=== PATIENT | male | born 1995 | race Two or more races ===

== ENCOUNTER 2017-11-07 09:15 | Emergency (ER) | payer OTHER ==
[2017-11-07 09:25] VITALS: BP 115/78
--- NOTE | 2017-11-07 09:54 | EDPHY ---
H & P Time Seen by Provider: 11/07/17 09:20 HPI/ROS: This patient sustained a head injury at work yesterday. 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 While he was bent down a 10 lb rock fell approximately 4 ft and struck the occiput of his head the yesterday at work. He was dazed and had fleeting blurred vision from the incident and then developed a headache 6/10 intensity in the frontal area thereafter. He also describes feeling slightly cloudy with his thinking since yesterday at 4:00 p.m. When this occurred and having intermittent mild dizziness. Yesterday he also had tinnitus which has since resolved. His supervisor [employer] instructed to come in for evaluation for his head injury. He came in by private vehicle. He has not taken any medication this morning for his headache which is not diminish to 3/ 10 intensity frontal location. He describes the nature of the headache as achy. ROS: Constitutional: No complaints new line HEENT: No facial injuries. Neuro: No vision changes. He describes brief paresthesias to the forehead region which have since resolved. No other numbness or tingling. No focal weakness. No angeles confusion. No retrograde amnesia. Musculoskeletal: No midline neck or back pain. No extremity complaints 7 point ROS is otherwise negative besides what is mentioned in HPI and ROS Smoking Status: Current some day smoker Physical Exam: Physical exam: Vital signs are normal General: Patient is in no acute distress. HEENT: Is no external evidence of trauma on exam. Nose atraumatic. Ears: Clear bilaterally with no hemotympanum. Oropharynx: No dental trauma or malocclusion. No intraoral lacerations. Eyes: Pupils are equal and reactive to light. Extraocular motions are intact. Optic fundi: Clear with no papilledema or hemorrhage. Neck: Trachea is midline with no stridor. The patient has no midline neck tenderness and retains a full range of motion without increase in pain. Lungs: Clear to auscultation bilaterally Cardiac: Regular rate and rhythm no murmur gallop or rub. Chest: Nontender. Abdomen: Soft nontender no organomegaly Back: Nontender Extremities: Atraumatic Neuro: GCS of 15. Cranial nerves II through XII intact. 2 out of 3 five- minute memory is intact. Cerebellar exam is normal as judged by symmetric rapid hand movements bilaterally. No pronator drift. No sensory or motor deficits are appreciated. Initial differential diagnosis: Minor head injury, concussion without LOC, doubt cerebral contusion more significant head injury based on history and exam Constitutional: Initial Vital Signs Temperature (C) 36.7 C 11/07/17 09:20 Heart Rate 69 11/07/17 09:20 Respiratory Rate 16 11/07/17 09:20 Blood Pressure 115/78 11/07/17 09:20 O2 Sat (%) 97 11/07/17 09:20 O2 Delivery Mode Room Air Allergies/Adverse Reactions: No Known Allergies Allergy (Verified 11/07/17 09:19) Home Medications: Medication Instructions Recorded NK [No Known Home Meds] 11/07/17 MDM/Departure - MDM ED Course/Re-evaluation: Patient's findings are most consistent with concussion without LOC. I counseled regarding this in some detail and answered all his questions prior to discharge home. He declined analgesics while here. Patient understands need to return emergency department should develop worsening symptoms. He will follow up with work comp clinic with plan to hold off on work the next day or 2. - Depart Disposition: Home, Routine, Self-Care Clinical Impression: Concussion Qualifiers: Encounter type: initial encounter Loss of consciousness presence/duration: without LOC Qualified Code(s): S06.0X0A - Concussion without loss of consciousness, initial encounter Condition: Good Instructions: Concussion (ED) Additional Instructions: Diagnosis: Concussion Plan: No work today Avoid vigorous activities until earlier headache resolved Tylenol for headache if needed Avoid ibuprofen or aspirin Follow up with work comp clinic tomorrow or Saturday for recheck. Avoid activities but she risk for a repeat head injury until 7 days after all of her symptoms have resolved Return emergency department if he developed unbearable headache, vomiting more than once, confusion or other concerns Stand Alone Forms: Work Excuse Referrals: NONE *PRIMARY CARE P,. [Primary Care Provider] - As per Instructions Tamiko Mahan MD [Medical Doctor] - As per Instructions
== END 2017-11-07 10:04 | disposition home or self-care (01) ==
LOC: CED 09:15
DX: S06.0X0A Concussion without loss of consciousness, initial encounter (principal); W20.8XXA Other cause of strike by thrown, projected or falling object, initial encounter; Y92.63 Factory as the place of occurrence of the external cause; Y99.0 Civilian activity done for income or pay